=== PATIENT | female | born 1985 | race Caucasian/White ===

== ENCOUNTER → 2025-03-31 | Outpatient (CLI) | payer SELFPAY ==
--- NOTE | 2025-03-31 12:18 | US_ITS ---
PROCEDURE: BREAST LIMITED UNILATERAL 03/31/2025 REASON FOR EXAM: Patient was scheduled for left ultrasound-guided breast biopsy. TECHNIQUE: Targeted left breast ultrasound. COMPARISON: Prior outside sonographic images dated March 18, 2025. FINDINGS: Left breast ultrasound was targeted to the lateral aspect of the left breast.. 2 cysts are seen at the 3 o'clock position of the left breast. The largest cyst measures 8 mm x 8 mm x 5 mm. Biopsy was not performed. US/Breast Limited Unilateral IMPRESSION: Impression: There are 2, subcentimeter cysts at the 2 o'clock position of the b reast at 2 cm from the nipple. Biopsy not performed. Birads: BI-RADS 2: BENIGN. RECOMMEND ANNUAL MAMMOGRAPHIC SCREENING. Reading Location: [place] [id number]
== END | disposition home or self-care (01) ==
PROVIDERS: PCP Physician Assistant; Referring Provider Surgery; Visit Provider Surgery
DX: N60.12 Diffuse cystic mastopathy of left breast (principal)
CPT/HCPCS: 76642

== ENCOUNTER → 2025-09-21 | Outpatient (CLI) | payer SELFPAY ==
--- NOTE | 2025-09-21 08:53 | US_ITS ---
PROCEDURE: BREAST LIMITED UNILATERAL 09/21/2025 REASON FOR EXAM: F, Age 40 y/o , F/U MID DEPTH 8 O CLOCK POSITION Follow-up sonogram. COMPARISON: Prior study dated March 31, 2025.. TECHNIQUE: Procedure Code: USBRSTLIMIT Modality: US Procedure: BREAST LIMITED UNILATERAL. The lower outer quadrant of the right breast was examined with ultrasound. FINDINGS: There is a 5 mm x 5 mm x 3 mm cyst at the 8 o'clock position of the breast at 3 cm from the nipple. A similar-appearing cyst measuring 5 mm x 6 mm x 3 mm is seen at the 8 o'clock position of the breast at 6 cm from the nipple. US/Breast Limited Unilateral IMPRESSION: Stable small cysts at the 8 o'clock position of the breast as described. BI-RADS 2: BENIGN RECOMMENDATION: Routine annual follow-up in 1 Year Reading Location: [id number]
== END | disposition home or self-care (01) ==
PROVIDERS: PCP Physician Assistant; Referring Provider Surgery; Visit Provider Surgery
DX: N63.13 Unspecified lump in the right breast, lower outer quadrant (principal)
CPT/HCPCS: 76642